=== PATIENT | female | born 1995 | race Caucasian/White ===

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

== ENCOUNTER 2018-05-23 17:03 | Emergency (ER) | payer BC, OTHER ==
--- NOTE | 2018-05-23 17:14 | EDPHY ---
H & P Stated Complaint: unusual vaginal bleeding with iud Time Seen by Provider: 05/23/18 17:14 - Personal History LMP (Females 10-55): Now Current Tetanus Diphtheria and Acellular Pertussis (TDAP): Unsure - Medical/Surgical History Hx Asthma: No Hx Chronic Respiratory Disease: No Hx Diabetes: No Hx Cardiac Disease: No Hx Renal Disease: No Hx Cirrhosis: No Hx Alcoholism: No Hx HIV/AIDS: No Hx Splenectomy or Spleen Trauma: No Other PMH: CMV - Social History Smoking Status: Never smoked Constitutional: Initial Vital Signs Temperature (C) 36.4 C 05/23/18 17:11 Heart Rate 77 05/23/18 17:11 Respiratory Rate 18 05/23/18 17:11 Blood Pressure 126/82 H 05/23/18 17:11 O2 Sat (%) 97 05/23/18 17:11 O2 Delivery Mode Room Air Allergies/Adverse Reactions: No Known Allergies Allergy (Verified 05/23/18 17:10) Home Medications: Medication Instructions Recorded AMOXICILLIN 05/23/18 Mirena 05/23/18 Medical Decision Making - Diagnostics Imaging: Discussed imaging studies w/ bingo caller Radiologist ED Course/Re-evaluation: CHIEF COMPLAINT: Vaginal bleeding, abdominal cramping HISTORY OF PRESENT ILLNESS: The patient is a 22 y/o female complaining of vaginal bleeding and lower abdominal cramping that began yesterday. She had a Mirena IUD placed in August 2016 and hasn't had a menstrual period since then and is not expecting a menstrual period. She's had no issues with this IUD and is generally healthy. She does not use anticoagulants. REVIEW OF SYSTEMS: A comprehensive 10 system review of systems is otherwise negative aside from elements mentioned in the history of present illness and medical decision making. PHYSICAL EXAM: HR, BP, O2 Sat, RR. Temp noted General Appearance: Alert, well hydrated, appropriate, and non-toxic appearing. Head: Atraumatic without scalp tenderness or obvious injury Eyes: Pupils equal, round, reactive to light and accommodation, EOMI, no trauma , no injection. Nose: Atraumatic, no rhinorrhea, clear. Throat: There is no erythema or exudates, no lesions, normal tonsils, mucus membranes moist. Neck: Supple, nontender, no lymphadenopathy. Respiratory: No retractions, no distress, no wheezes, and no accessory muscle use. Lungs are clear to auscultation bilaterally. Cardiovascular: Regular rate and rhythm, no murmurs, rubs, or gallops. Good capillary refill all extremities. Gastrointestinal: Abdomen is soft, nontender, non-distended, no masses, no rebound, no guarding, no peritoneal signs. Musculoskeletal: Normal active ROM of all extremities, atraumatic. Neurological: Alert, appropriate, and interactive. The patient has non-focal cranial nerves, motor, sensory, and cerebellar exam. Skin: No rashes, good turgor, no nodules on palpation. Past medical history: Denies Past surgical history: Denies Family history: Noncontributory Social history: Lives in [place]. [employer] student. DIAGNOSTICS/PROCEDURES/CRITICAL CARE TIME: Pelvic US: negative DIFFERENTIAL DIAGNOSIS: The differential diagnosis for the patient's vaginal bleeding included but was not limited to ectopic , menses, miscarriage , and dysfunctional uterine bleeding. MEDICAL DECISION MAKING: This is a 22 y/o female with a Mirena IUD who presents with a one-day history of vaginal bleeding and abdominal cramping. Abdomen is benign on exam. Presentation could represent ectopic , malpositioned IUD, or menstrual cycle. Plan for IV, labs including BHCG, and pelvic US. Labs, BHCG, and pelvic US are all normal. Reevaluated patient and discussed findings. She will be discharged with standard care and follow up instructions. Return precautions discussed. She is comfortable with plan for discharge. - Data Points Laboratory Results: Laboratory Results 05/23/18 17:25 05/23/18 17:25 05/23/18 05/23/18 05/23/18 17:25 17:25 17:25 WBC 6.27 10^3/uL 10^3/uL (3.80-9.50) RBC 5.09 10^6/uL 10^6/uL (4.18-5.33) Hgb 14.8 g/dL g/dL (12.6-16.3) Hct 46.1 % % (38.0-47.0) MCV 90.6 fL fL (81.5-99.8) MCH 29.1 pg pg (27.9-34.1) MCHC 32.1 g/dL L g/dL (32.4-36.7) RDW 13.3 % % (11.5-15.2) Plt Count 337 10^3/uL 10^3/uL (150-400) MPV 10.2 fL fL (8.7-11.7) Neut % (Auto) 51.5 % % (39.3-74.2) Lymph % (Auto) 39.4 % % (15.0-45.0) Cross % (Auto) 5.6 % % (4.5-13.0) Eos % (Auto) 2.2 % % (0.6-7.6) Baso % (Auto) 1.1 % % (0.3-1.7) Nucleat RBC Rel Count 0.0 % % (0.0-0.2) Absolute Neuts (auto) 3.23 10^3/uL 10^3/uL (1.70-6.50) Absolute Lymphs (auto) 2.47 10^3/uL 10^3/uL (1.00-3.00) Absolute Monos (auto) 0.35 10^3/uL 10^3/uL (0.30-0.80) Absolute Eos (auto) 0.14 10^3/uL 10^3/uL (0.03-0.40) Absolute Basos (auto) 0.07 10^3/uL 10^3/uL (0.02-0.10) Absolute Nucleated RBC 0.00 10^3/uL 10^3/uL (0-0.01) Immature Gran % 0.2 % % (0.0-1.1) Immature Gran # 0.01 10^3/uL 10^3/uL (0.00-0.10) Sodium 138 mEq/L mEq/L (135-145) Potassium 3.9 mEq/L mEq/L (3.5-5.2) Chloride 103 mEq/L mEq/L (97-110) Carbon Dioxide 25 mEq/l mEq/l (22-31) Anion Gap 10 mEq/L mEq/L (6-14) BUN 18 mg/dL mg/dL (7-23) Creatinine 0.7 mg/dL mg/dL (0.6-1.0) Estimated GFR > 60 Glucose 84 mg/dL mg/dL (70-100) Calcium 9.9 mg/dL mg/dL (8.5-10.4) Beta HCG, Quant < 2.39 mIU/mL mIU/mL (0.00-4.83) Patient ABO/Rh O POSITIVE Departure - Departure Disposition: Home, Routine, Self-Care Clinical Impression: Vaginal bleeding Condition: Good Instructions: Dysfunctional Uterine Bleeding (ED) Additional Instructions: Tylenol and ibuprofen as directed on the packaging as needed for pain over the next few days. Follow up with your OBGYN in the next week. You've been referred to Dr. Salguero locally if needed. Return to the ED for any worsening of condition. Referrals: Rosa Salguero DO [Doctor of Osteopathy] - As per Instructions Report Scribed for: Cipriano Hodges Report Scribed by: Meme Desai Date of Report: 05/23/18 Time of Report: 17:38
[2018-05-23 17:41] LABS: PLATELET COUNT 337 10^3/uL (150-400)
[2018-05-23 18:44] VITALS: BP 131/63
== END 2018-05-23 18:44 | disposition home or self-care (01) ==
LOC: EEVIPCON 17:03
DX: N93.9 Abnormal uterine and vaginal bleeding, unspecified (principal); R10.30 Lower abdominal pain, unspecified; Z97.5 Presence of (intrauterine) contraceptive device